=== PATIENT | female | born 1985 | race Caucasian/White ===

== ENCOUNTER 2017-07-06 21:45 | Inpatient (IN) | payer OTHER ==
[~2017-07-06] VITALS: Ht 152.4 cm; Wt 53.1 kg
[2017-07-07] MEDS ORDERED: IRON325 MG PO (10:46)
[2017-07-07] MEDS ORDERED: PRENATAL TABLE1 EACH PO (10:46)
[2017-07-09] MEDS ORDERED: NIFEDIPINE ER60 MG PO (13:35)
[2017-07-09] MEDS ORDERED: HYDROXYZINE PAM50 MG PO (13:35)
== END 2017-07-09 14:41 | disposition home or self-care (01) | DRG 778 ==
LOC: OBS/DEL 21:45 → LDR 07-07 08:39 → OB/GYN 07-07 08:39
PROC: 4A1HXCZ Monitoring of Products of Conception, Cardiac Rate, External Approach (ICD-10-PCS; principal; 2017-07-07)
DX: O60.03 Preterm labor without delivery, third trimester (principal); Z3A.35 35 weeks gestation of pregnancy

== ENCOUNTER 2017-07-28 14:39 | Inpatient (IN) | payer OTHER ==
[~2017-07-28] VITALS: Ht 152.4 cm; Wt 117.0 kg
[~2017-07-28 14:39] MED LIST: HYDROXYZINE PAM50 MG PO; IRON325 MG PO; NIFEDIPINE ER60 MG PO; PRENATAL TABLE1 EACH PO
[2017-07-31] MEDS ORDERED: COLACE100 MG PO (13:11)
== END 2017-07-31 13:33 | DRG 775 ==
LOC: LDR 14:39 → OB/GYN 07-30 00:02
PROC: 4A1HXCZ Monitoring of Products of Conception, Cardiac Rate, External Approach (ICD-10-PCS; 2017-07-28)
PROC: 0DQR0ZZ Repair Anal Sphincter, Open Approach (ICD-10-PCS; principal; 2017-07-29)
PROC: 10E0XZZ Delivery of Products of Conception, External Approach (ICD-10-PCS; 2017-07-29)
PROC: 3E033VJ Introduction of Other Hormone into Peripheral Vein, Percutaneous Approach (ICD-10-PCS; 2017-07-29)
DX: O70.20 Third degree perineal laceration during delivery, unspecified (principal); O13.3 Gestational [pregnancy-induced] hypertension without significant proteinuria, third trimester; Z3A.38 38 weeks gestation of pregnancy; Z37.0 Single live birth

== ENCOUNTER 2020-06-09 16:08 | Emergency (ER) | payer OTHER ==
[~2020-06-09] VITALS: Ht 152.4 cm; Wt 46.3 kg
[~2020-06-09 16:08] MED LIST changes: +COLACE100 MG PO
== END 2020-06-09 19:44 | disposition home or self-care (01) ==
LOC: ER 16:08
DX: O20.8 Other hemorrhage in early pregnancy (principal); Z3A.01 Less than 8 weeks gestation of pregnancy

== ENCOUNTER → 2022-02-22 | Outpatient (CLI) | payer OTHER | END | disposition home or self-care (01) | LOC: RX STUDY 08:55 | PROVIDERS: ATTEND Obstetrics & Gynecology | DX: N88.3 Incompetence of cervix uteri (principal) ==